=== PATIENT | male | born 1985 | race African-American/Black ===

== ENCOUNTER 2021-04-09 12:08 | Emergency (ER) | payer MEDICAID, OTHER ==
[~2021-04-09] VITALS: Ht 177.8 cm; Wt 70.5 kg
[2021-04-09] MEDS ORDERED: SODIUM CHLORIDE 0.9% 1,000 ML IV ONE (14:15)
[2021-04-09] MEDS ORDERED: KETOROLAC TROMETHAMINE 30 MG/ML VIAL IVP ONE (14:15)
[2021-04-09] MEDS ORDERED: ONDANSETRON HCL 4 MG/2 ML VIAL IVP ONE (14:15)
[2021-04-09 15:50] VITALS: BP 114/65
== END 2021-04-09 16:02 | disposition home or self-care (01) ==
LOC: EMS 12:12
DX: N23 Unspecified renal colic (principal)
CPT/HCPCS: 81002; 96361; 96374; 96375; 99284; J1885; J2405; J7030; 99283